=== PATIENT | male | born 1965 | race African-American/Black ===

== ENCOUNTER 2017-01-03 20:04 | Emergency (ER) | payer SELFPAY ==
[~2017-01-03] VITALS: Ht 175.3 cm; Wt 89.0 kg
[2017-01-03 20:12] VITALS: BP 123/80
== END 2017-01-03 23:00 | disposition left against medical advice (07) ==
LOC: ER 20:04
DX: F10.129 Alcohol abuse with intoxication, unspecified (principal); Z53.21 Procedure and treatment not carried out due to patient leaving prior to being seen by health care provider